=== PATIENT | male | born 1980 | race Caucasian/White ===

== ENCOUNTER 2020-12-23 18:21 | Emergency (ER) | payer OTHER, SELFPAY ==
[2020-12-23 18:22] VITALS: BP 138/90; PULSE 71; RESP 20; TEMP 36.9; O2SAT 97; BMI 38.5
--- NOTE | 2020-12-23 20:02 | ED_ITS ---
ED Disposition Clinical Impression: Foreign body Disposition: Home, Self-Care Condition on Discharge: Good Instructions: DI for Laceration Repair Referrals: Provider,Referral, [Primary Care Provider] - 3 days Time of Disposition: 20:05 - Critical Care Critical Care Time: No Attestation: On 12/23/20, the high probability of a clinically significant, sudden or life threatening deterioration of the following system(s) required my full and direct attention, intervention and personal management. The time I documented below is in addition to time spent performing reported procedures but includes the following listed in this critical care notation. Medical Decision Making - Medical Records Medical records reviewed: Yes: I reviewed the patient's medical records. - Girish Inquiry Pt receiving controlled substance: No Vital Signs: 12/23/20 18:22 Temperature 98.4 F Temperature Source Oral Pulse Rate [Right Brachial] 71 Respiratory Rate 20 Blood Pressure [Right Arm] 138/90 Blood Pressure Mean [Right Arm] 106 02 Sat by Pulse Oximetry 97 Oxygen Delivery Method Room Air Medical Decision Narrative: 2 hooks of trouble hook buried in patient's skin. Cleansed with Hibiclens as much as possible. Local anesthetic applied. Pokes were cut with pliers and driven through skin and removed vishal first. Patient tolerated procedure well. Tetanus updated tonight. Sent home on antibiotics. General Adult HPI - General Chief complaint: Wound/Laceration Stated complaint: AO [id number]@1800 fish hook Left side of face Time Seen by Provider: 12/23/20 19:45 Mode of Arrival: Family Vehicle Limitations: No Limitations Description of Symptoms (Recalled from ER Triage Doc. by RN): Pt reports that he was out fishing with friends he cast his line and it become stuck in the left side of his neck, just below his jaw & jugular area. 2 sides of the hook are under the skin. - History of Present Illness HPI narrative: 40yo M without significant past medical history reports emergency department secondary to having a fishing lower stuck in his left neck. Injury occurred immediately prior to arrival. [facility] History - Hepatitis A Screen Drug use history?: No High risk sexual behaviors?: No History of sexually transmitted infection?: No Currently employed?: No Childcare worker?: No Do you have indoor plumbing?: Yes Do you have electricity?: Yes Attestation statement:: This patient has been screened for Hepatitis A risk factors. I have reviewed the patient's past medical history: Yes ROS Obtained: Yes All systems reviewed & no additional complaints Physical Exam - General General appearance: alert, in no apparent distress - Head Head exam: atraumatic, normocephalic, normal inspection - Eye Eye exam: Present: normal appearance, PERRL, EOMI - Neck Neck exam: Present: full ROM, trachea midline - Respiratory Respiratory exam: Present: normal lung sounds bilaterally. Absent: respiratory distress - Cardiovascular Cardiovascular exam: Present: regular rate, normal rhythm. Absent: JVD - Abdominal Exam Abdominal exam: Present: soft - Neurological Exam Neurological exam: Present: alert, oriented X3 - Skin Skin exam: Present: warm, dry, other (2 out of 3 hooks buried in the patient's left neck.)
[2020-12-23 20:16] VITALS: BP 120/74; PULSE 73; RESP 18; TEMP 36.8; O2SAT 99
== END 2020-12-23 20:18 | disposition home or self-care (01) ==
PROVIDERS: Emergency Provider Family Medicine
DX: S11.84XA Puncture wound with foreign body of other specified part of neck, initial encounter (principal); W22.8XXA Striking against or struck by other objects, initial encounter; Y92.89 Other specified places as the place of occurrence of the external cause; Z23 Encounter for immunization
CPT/HCPCS: 10120; 90714; 99282